=== PATIENT | male | born 1940 | race Caucasian/White ===

== ENCOUNTER 2022-05-20 11:15 | Inpatient (IN) | payer MEDICARE, OTHER, SELFPAY ==
[2022-05-20 11:27] VITALS: BP 133/62; PULSE 57; RESP 18; TEMP 36.6; O2SAT 96
--- NOTE | 2022-05-20 11:47 | CRLHL7_ITS ---
For Patients: As a result of the Century Cures Act, medical imaging exams and procedure reports are released immediately into your electronic medical record. You may view this report before your referring provider. If you have questions, please contact your health care provider. INDICATION: Fall. TECHNIQUE: Pelvis and left hip 3 views. COMPARISON: None. FINDINGS: There is an acute mildly displaced and angulated intertrochanteric fracture of the left femur. The femoral head remains aligned with the acetabulum. The hip joint spaces are preserved. Degenerative changes of the lower lumbar spine. The sacroiliac joints are normal in appearance. Pelvic phleboliths. Soft tissues are unremarkable. IMPRESSION: Acute mildly displaced and angulated intertrochanteric fracture of the left femur. Dictated by Kristie Castrejon MD @ 05/20/2022 1:28:16 PM (Electronically Signed)
--- NOTE | 2022-05-20 11:49 | ED.GENADULT ---
HPI - General Adult General Chief complaint: Hip Injury/Pain Stated complaint: L hip pain Time Seen by Provider: 05/20/22 11:28 History of Present Illness HPI narrative: This 82-year-old male comes in because of an injury to his left hip. He had an unwitnessed fall this morning. He has his left leg shortened and externally rotated. He resides in a assisted living facility with memory care. He has Alzheimer's for the past couple years and is now nonverbal. Prior to this injury he was ambulatory with the assistance of a walker. Related Data Home Medications Medication Instructions Recorded Confirmed bisacodyl 10 mg rectal suppository mg MO 05/20/22 cholestyramine-aspartame 4 gram ea 05/20/22 oral powder (Prevalite) hyoscyamine sulfate 0.125 mg mg 05/20/22 sublingual tablet loperamide 2 mg capsule (Imodium 2 mg PO Q6H PRN 05/20/22 05/20/22 A-D) lorazepam 2 mg/mL oral concentrate mg 05/20/22 morphine concentrate 100 mg/5 mL mg 05/20/22 (20 mg/mL) oral solution quetiapine 25 mg tablet mg 05/20/22 sennosides 8.6 mg-docusate sodium PO 05/20/22 50 mg tablet (Stimulant Laxative Plus) trazodone 50 mg tablet mg 05/20/22 Allergies Allergy/AdvReac Type Severity Reaction Status Date / Time No Known Drug Allergies Allergy Verified 05/20/22 11:23 Review of Systems Status of ROS: Reports: 10 or more systems reviewed and unremarkable except as noted in History and below Narrative: Unable to obtained due to Alzheimer's and nonverbal status. PFSH PFSH Social History Smoking Status: Unknown if ever smoked Do you use any of these nicotine containing products: None Second hand tobacco smoke exposure: No How often do you have a drink containing alcohol: never How often do you have six or more drinks on one occasion: Never AUDIT-C Alcohol total score: 0 Non-prescribed substance use: denies use Exam Narrative: Exam Narrative: Constitutional: Well-developed, well-nourished, no acute distress. HEENT: Normocephalic, atraumatic. Neck: Normal range of motion. Nontender. Supple. Heart: Regular. No murmurs. Normal rate. Intact distal pulses. Lungs: Clear to auscultation. No chest discomfort. No wheezes, rhonchi, or rales. Abdomen: Normal bowel sounds. Nontender. No rebound tenderness. Genitalia: Deferred. Back: No midline tenderness. Normal range of motion. Extremities: Left leg is shortened and externally rotated typical of a hip fracture. Skin: Intact. No rash. Warm. No erythema or pallor. Neurologic: No altered sensation. No weakness. Psychiatric: Alzheimer's dementia. Nonverbal. Nursing notes and vitals signs are reviewed. Const: Vital Signs, click to edit/add: Vital Signs - 24 hr 05/20/22 11:27 Temperature 97.9 F Pulse Rate [Right Pulse Oximeter] 57 L Respiratory Rate 18 Blood Pressure [Ri ght Upper Arm] 133/62 Pulse Oximetry 96 Oxygen Delivery Me thod Room Air Course Vital Signs Vital signs: Initial Vital Signs Temperature 97.9 F 05/20/22 11:27 Temperature Source Temporal Artery Scan 05/20/22 11:27 Pulse Rate 57 L 05/20/22 11:27 Respiratory Rate 18 05/20/22 11:27 Blood Pressure 133/62 05/20/22 11:27 Blood Pressure Mean 85 05/20/22 11:27 Blood Pressure Position Sitting 05/20/22 11:27 Pulse Oximetry 96 05/20/22 11:27 Oxygen Delivery Method 05/20/22 11:27 Vital Signs Temperature 97.9 F 05/20/22 11:27 Pulse Rate 57 L 05/20/22 11:27 Respiratory Rate 18 05/20/22 11:27 Blood Pressure 133/62 05/20/22 11:27 Pulse Oximetry 96 05/20/22 11:27 Oxygen Delivery Method 05/20/22 11:27 Temperature 97.9 F 05/20/22 11:27 Pulse Rate 57 L 05/20/22 11:27 Respiratory Rate 18 05/20/22 11:27 Blood Pressure 133/62 05/20/22 11:27 Pulse Oximetry 96 05/20/22 11:27 Oxygen Delivery Method 05/20/22 11:27 Medical Decision Making MDM Narrative Medical decision making narrative: This patient comes in for evaluation of a fall with injury to his left hip. X-ray images of the hip and pelvis by my review show evidence of a left greater trochanteric hip fracture. An IV was established. He did receive 0.2 mg of Dilaudid intravenously. I had discussion with the patient's and daughter who had lots of questions about options going forward. The patient is DNR DNI. He is not on blood thinners. He does have a systolic ejection murmur that is apparently due to some degree of aortic stenosis. I did speak with the orthopedic surgeon on-call, Dr. Ashraf, and with the hospitalist inspector heating and refrigeration, Dr. Rubi, who will arrange for admission and plans for attending to the fractured hip. Lab Data Labs: Lab Results 05/20/22 05/20/22 Range/Units 12:09 12:09 WBC 9.22 (4.50-11.00) K/uL RBC 4.76 (4.30-5.90) m/uL Hgb 13.0 L (13.5-17.5) gm/dL Hct 41.8 (37.0-53.0) % MCV 88 (80-100) fL MCH 27 (26-34) pg MCHC 31 L (32-36) gm/dL RDW Coeff of Arlette 14.6 (11.5-15.5) % Plt Count 180 (140-440) K/uL Neut % (Auto) 85.9 H (42.0-72.0) % Lymph % (Auto) 7.7 L (20-44) % [place] % (Auto) 5.6 (0.0-11.0) % Eos % (Auto) 0.5 (0.0-7.0) % Baso % (Auto) 0.1 (0.0-3.0) % Neut # (Auto) 7.90 H (1.7-7.0) K/uL Lymph # (Auto) 0.70 L (0.90-2.90) K/uL [place] # (Auto) 0.50 (0.00-0.90) K/UL Eos # (Auto) 0.05 (0.00-0.50) K/uL Baso # (Auto) 0.01 (0.00-0.30) K/uL Abs Immat Gran (auto) 0.02 (0.00-0.30) K/uL Sodium 143 (135-149) mmol/L Potassium 3.7 (3.6-5.1) mmol/L Chloride 109 (96-114) mmol/L Carbon Dioxide 24 (20-32) mmol/L BUN 26 (7-30) mg/dL Creatinine 1.0 (0.5-1.5) mg/dL Estimated GFR 76 ml/min Glucose 143 H (60-115) mg/dL Calcium 9.2 (8.4-10.6) mg/dL Imaging Data XR L Hip: My impression: Left greater trochanteric hip fracture. Discharge Plan Discharge Clinical Impression: Hip fracture Patient Disposition: Admitted As Inpatient Condition: Unchanged Prescriptions: No Action bisacodyl 10 mg suppository MO Label Comments: INSERT 1 SUPPOSITORY RECTALLY ONCE DAILY NEEDED FOR CONSTIPATION hyoscyamine sulfate 0.125 mg tablet, sublingual Label Comments: DISSOLVE 1 TABLET UNDER THE TONGUE EVERY 4 HOURS NEEDED FOR SECRETIONS Prevalite 4 gram powder loperamide [Imodium A-D] 2 mg capsule 2 mg PO Q6H PRN quetiapine 25 mg tablet trazodone 50 mg tablet morphine concentrate 100 mg/5 mL (20 mg/mL) solution sennosides-docusate sodium [Stimulant Laxative Plus] 8.6-50 mg tablet PO Label Comments: TAKE 1 TABLET BY MOUTH DAILY NEEDED FOR CONSTIPATION lorazepam 2 mg/mL concentrate Follow Up/Referrals: Maribel Lr MD [Staff Physician] -
--- NOTE | 2022-05-20 11:51 | CRLHL7_ITS ---
For Patients: As a result of the Cures Act, medical imaging exams and procedure reports are released immediately into your electronic medical record. You may view this report before your referring provider. If you have questions, please contact your health care provider. INDICATION: Fall. TECHNIQUE: Chest 1 view. COMPARISON: None. FINDINGS: No focal consolidation, pleural effusion, or pneumothorax. Mild cardiomegaly. Normal pulmonary vascularity. Degenerative changes of the shoulders. No displaced rib fracture identified. IMPRESSION: 1. No acute cardiopulmonary findings. 2. Mild cardiomegaly. Dictated by Kristie Castrejon MD @ 05/20/2022 1:30:44 PM (Electronically Signed)
[2022-05-20 12:15] LABS: Basophils Absolute Auto 0.01 K/uL (0.00-0.30); Basophils Percent Auto 0.1 % (0.0-3.0); Eosinophils Absolute Auto 0.05 K/uL (0.00-0.50); Eosinophils Percent Auto 0.5 % (0.0-7.0); Hematocrit 41.8 % (37.0-53.0); Immature Granulocytes Abs Auto 0.02 K/uL (0.00-0.30); Lymphocytes Percent Auto 7.7 % (20-44); Mean Corpuscular HGB Conc 31 gm/dL (32-36); Mean Corpuscular Hemoglobin 27 pg (26-34); Mean Corpuscular Volume 88 fL (80-100); Monocytes Percent Auto 5.6 % (0.0-11.0); Neutrophils Percent Auto 85.9 % (42.0-72.0); Platelet Count* 180 K/uL (140-440); RDW Coefficient of Variation % 14.6 % (11.5-15.5); Red Blood Count 4.76 m/uL (4.30-5.90); White Blood Count* 9.22 K/uL (4.50-11.00)
[2022-05-20 12:20] LABS: Slide Review Reflex No
[2022-05-20 12:28] LABS: Chloride* 109 mmol/L (96-114)
[2022-05-20 12:29] LABS: Potassium* 3.7 mmol/L (3.6-5.1); Sodium* 143 mmol/L (135-149)
[2022-05-20 12:31] LABS: Carbon Dioxide* 24 mmol/L (20-32); Estimated Glomerular Filt Rate 76 ml/min
[2022-05-20 12:32] LABS: Blood Urea Nitrogen* 26 mg/dL (7-30); Calcium* 9.2 mg/dL (8.4-10.6); Glucose* 143 mg/dL (60-115)
[2022-05-20] MEDS: HYDROmorphone 0.5 mg/0.5 ml inj 0.2 MG IVP (13:23)
--- NOTE | 2022-05-20 13:35 | ED.NURSE ---
Bed request sent
[2022-05-20 13:36] VITALS: BP 122/78; PULSE 82; O2SAT 98
[2022-05-20 14:03] LABS: SARS PCR* Negative SARS-CoV-2 (Negative)
--- NOTE | 2022-05-20 14:13 | W.PC.EDHO ---
Primary Language: Preferred Language: Orientation Status: [] Alert & Oriented [] Slight Confusion [] Known Dx Dementia Transfers By: [] Assist of 1 [] Assist of 2 [X] Lift Active Medications Discontinued Medications Generic Name Dose Route Start Last Admin Trade Name Ann-Marie PRN Reason Stop Dose Admin Hydromorphone HCl 0.2 mg 05/20/22 13:08 05/20/22 13:23 Hydromorphone 0.5 Mg/0.5 Ml Inj IVP 05/20/22 13:09 0.2 mg ONCE ONE Administration Description of Symptoms ED Triage Present Problem pt fell last evening at his NH, today they were Description attempting to get him up and noted his left leg was shortened and rotated, pt non-verbal but do note grimacing with movement ED Triage Date of Onset of 05/19/22 Symptoms Pain Pain Description [Left Hip] Other Pain Intensity [Left Hip] 4 Pain Intensity [Left Hip] 4 Pain Intensity 6 Pain Scale Used [Left Hip] Hinojosa-Olivares (Faces) Pain Scale Used [Left Hip] FLACC Scale Pain Scale Used Hinojosa-Olivares (Faces) Pain Scale Used Hinojosa-Olivares (Faces) Pain Scale Used Hinojosa-Olivares (Faces) IV Insertion/Site Date of IV Line Insertion [ 05/20/22 Right Antecubital] Oxygen Administration Pulse Oximetry 98 Pulse Oximetry 96 Oxygen Delivery Method Room Air Oxygen Delivery Method Room Air Cardiac Monitoring EKG Method 12 Lead
--- NOTE | 2022-05-20 14:30 | ED.NURSE ---
Requested medication for patient, no new orders.
[2022-05-20] MEDS: MORPHINE 2 MG/ML inj IVP ×2 (15:54→18:37)
[2022-05-20 17:57] VITALS: BP 177/92; PULSE 72; RESP 16; O2SAT 95; BMI 21.9
[2022-05-20 19:17] VITALS: BP 163/90; PULSE 86; RESP 22; TEMP 37.7; O2SAT 96
[2022-05-20 19:45] LABS: NT Pro B Type NatriureticPept* 2150 PG/mL (0-450)
[2022-05-20] MEDS: LACTATED RINGERS 1000 ML 500 ML IV (19:53)
[2022-05-20] MEDS: CHOLESTYRAMINE POWDER 4 GM PO (20:09)
--- NOTE | 2022-05-20 20:14 | PM.IMHP1 ---
Hospitalist- H&P: HPI History of Present Illness Time Seen by Provider: 15:00 Date Seen: 05/20/22 Chief complaint: L hip pain Narrative: Cuco Rueda is a 82 year old man with advanced Alzheimer's type of dementia who resides in an assisted care facility called [facility] in [place], [place], and has been receiving hospice services with [facility] in association with this Alzheimer's diagnosis for approximately the past month. He has significant cognitive and physical debility in association with Alzheimer's disease, including decreased cognition, aphasia, impulsivity, unstable gait, multiple falls. Reportedly he now requires assistance with all 6 of 6 activities of daily living. This morning he was sitting at the dining room table when staff left him unattended for a brief moment and he impulsively attempted to stand and fell to the floor and subsequently had left hip pain. The fall was not witnessed. There was no loss of consciousness. No obvious head injury. Was brought to the emergency department for further assessment. Found to have a shortened left leg that is externally rotated. X-ray of left hip demonstrated a nondisplaced left intertrochanteric hip fracture. Discussion undertaken with the patient and daughter, Mar. Reviewed treatment options including palliative management of pain only verses attempt at intraoperative repair. Family elected attempt at intraoperative repair of the fracture. Review of Systems Status of ROS: Reports: 10 or more systems reviewed and unremarkable except as noted in History and below Narrative: No obvious or apparent angina or anginal equivalent, syncope or near syncope, nausea or vomiting, dyspnea at rest, paroxysmal nocturnal dyspnea, orthopnea, or increased dyspnea with exertion. No obvious recent fevers, rigors, diaphoresis. No recent blood loss. No recent travel. In the last several months he has been assessed in the emergency department at least 5 times related to falls and injuries associated there with. Most of the falls have been either without injury or with laceration, contusion, or skin abrasion. Reviewed outside medical records on 02/03/2022 he had a fall that culminated in a 10 mm subdural hematoma. After another fall on 12 February the subdural hematoma was found to be [address] scan of the head on 13 February demonstrated stable size of the subdural hematoma at 14 mm. Has not been reassessed in this regard since. No obvious gastrointestinal or genitourinary concerns or problems. Family does indicate that he has had a fair amount of weight loss over the last several months. Is on a modified diet with small bites size pieces of food, soft and easy to chew, with nectar thick into applesauce thickened liquids due to his dysphagia. Requires constant supervision when eating including cuing to swallow and not fill his mouth full of food. Generally redirectable. For the most part recognizes family members still. Has not been able to speak for some time. Family describes him as being fidgety. Has had longstanding insomnia. Has been living at the current assisted Living Center, Family residence, for at least a month and the family has been very satisfied with the cares he has received there. His , Mercedes, and his daughter, Mar, are very active in his cares and needs. Mercedes's cell telephone number is [phone]. Mar's cell phone number is [phone]. Family indicate that patient has resuscitation status is DNR DNI. [facility] Medical History (Updated 05/20/22 @ 20:59 by John Lundberg MD) Alzheimer's type dementia Aortic stenosis Diverticulosis Dysphagia Essential hypertension Fracture of thoracic vertebra, closed Gallstone History of laceration of skin History of prostate cancer History of sinus bradycardia History of traumatic subdural hematoma Hyperlipidemia Impulsive Insomnia disorder Left ureteral calculus Multiple falls Multiple rib fractures Obstructive sleep apnea Osteoarthritis Simple renal cyst Unstable gait Surgical History History of umbilical hernia repair Status post laparoscopic hernia repair Status post left knee replacement Status post prostatectomy Status post right rotator cuff repair Social History Highest level of school completed/degree received: Bachelor's degree Smoking Status: Former smoker What tobacco products do you use: cigarettes Smoking quit date/years: >15 years ago Do you use any of these nicotine containing products: None Second hand tobacco smoke exposure: No How often do you have a drink containing alcohol: never How often do you have six or more drinks on one occasion: Never AUDIT-C Alcohol total score: 0 Non-prescribed substance use: denies use Caffeine: No service: No Meds Home Medications and Allergies Home Medications Medication Instructions Recorded Confirmed Type acetaminophen 650 mg rectal 650 mg SD Q6H PRN 05/20/22 05/20/22 History suppository bisacodyl 10 mg rectal suppository 10 mg SD DAILY PRN 05/20/22 05/20/22 History cholestyramine-aspartame 4 gram 4 ea PO TID 05/20/22 05/20/22 History oral powder (Prevalite) hyoscyamine sulfate 0.125 mg 0.125 mg PO Q4H PRN 05/20/22 05/20/22 History sublingual tablet loperamide 2 mg capsule (Imodium 2 mg PO Q6H PRN 05/20/22 05/20/22 History A-D) lorazepam 0.5 mg tablet (Ativan) 0.5 mg PO Q4H PRN 05/20/22 05/20/22 History melatonin 3 mg tablet 6 mg PO QHS 05/20/22 05/20/22 History morphine concentrate 100 mg/5 mL 5 mg PO Q2H PRN 05/20/22 05/20/22 History (20 mg/mL) oral solution quetiapine 25 mg tablet 25 mg PO DAILY PRN 05/20/22 05/20/22 History quetiapine 50 mg tablet (Seroquel) 50 mg PO QHS 05/20/22 05/20/22 History sennosides 8.6 mg-docusate sodium 1 tab-cap PO DAILY PRN 05/20/22 05/20/22 History 50 mg tablet (Stimulant Laxative Plus) trazodone 50 mg tablet 50 mg PO HS 05/20/22 05/20/22 History Allergies Allergy/AdvReac Type Severity Reaction Status Date / Time No Known Drug Allergies Allergy Verified 05/20/22 11:23 Exam Narrative: Exam Narrative: Appears comfortable. Holding his daughter's hand. Does fidget a fair amount. A couple of times during my examination with him he attempts to get up and get out of the emergency department exam chair. His daughter is able to comfort him and help him lay back down on the exam table. Unable to answer any questions that I prefer to him. His daughter, Mar, who is present when I examine him, helps answer my questions. I also speak with his in the emergency department waiting room, who is not present when I examined the patient. Cranial nerves 3-12 appear grossly intact. No focal motor neurologic deficits. Certainly has expressive aphasia. Does follow simple 1 step commands. Skin is intact. Does have scars on his forehead. No obvious ecchymosis or contusions on exposed skin. Neck supple. No JVD or hepatojugular reflux. No carotid bruits. Lungs are clear to auscultation without wheezing, rhonchi, or rales. Chest wall excursions are full. Chest is thin. Ribs easily visible. Heart tones with regular rhythm, occasional extra beat. Loud, harsh systolic murmur across the precordium loudest in right upper sternal border. PMI not laterally displaced. Abdomen with active bowel sounds, soft, nontender. Thin abdomen. Left lower extremity is shorter than the right and is externally rotated. No dependent edema. Still has a great deal of strength in upper extremities. Const: Vital Signs, click to edit/add: Vital Signs - 24 hr 05/20/22 11:27 05/20/22 13:36 05/20/22 17:57 Temperature 97.9 F Pulse Rate [Right Pulse Oximeter] 57 L 82 72 Respiratory Rate 18 16 Blood Pressure [Ri ght Arm] 177/92 H Blood Pressure [Ri ght Upper Arm] 133/62 122/78 Pulse Oximetry 96 98 95 Oxygen Delivery Me thod Room Air Room Air Room Air 05/20/22 17:57 Temperature Pulse Rate [Right Pulse Oximeter] Respiratory Rate Blood Pressure [Ri ght Arm] Blood Pressure [Ri ght Upper Arm] Pulse Oximetry 95 Oxygen Delivery Me thod Room Air Hospitalist - H&P: Result Labs Labs: Short CBC 05/20/22 Range/Units 12:09 WBC 9.22 (4.50-11.00) K/uL Hgb 13.0 L (13.5-17.5) gm/dL Hct 41.8 (37.0-53.0) % Plt Count 180 (140-440) K/uL BMP 05/20/22 12:09 Sodium 143 Potassium 3.7 Chloride 109 Carbon Dioxide 24 BUN 26 Creatinine 1.0 Glucose 143 H Calcium 9.2 Imaging Chest x-ray: Attestation: I have reviewed the pertinent imaging results. Radiologist's impression: Possible mild cardiomegaly otherwise lungs are clear. Left hip x-ray: Attestation: I have reviewed the pertinent imaging results. Radiologist's impression: Nondisplaced left intertrochanteric fracture. Echo: Radiologist's impression: Normal left ventricular chamber size, mildly increased wall thickness, normal global systolic function, calculated ejection fraction of 64%. Sclerotic aortic valve, with severe aortic stenosis and mild regurgitation. Mean gradient is up to 72 mmHg, with last echocardiogram in January of 2020 demonstrating a mean gradient of 41 mmHg. Moderate left atrial enlargement. Normal mitral valve with mild mitral regurgitation. Assessment and Plan Assessment and plan (1) Closed intertrochanteric fracture of left hip: Status: Acute (2) Unstable gait: Status: Acute (3) Multiple falls: Status: Acute (4) Impulsive: Status: Acute (5) Alzheimer's type dementia: Problem comment: Receiving hospice services in association with the same Status: Acute (6) Severe aortic valve stenosis: Problem comment: Mean gradient 72 mmHg 05/20/2022. Mean gradient was 41 mmHg 01/2020. Family declines any additional disease directed diagnostic or interventional efforts at this time. Status: Acute Plan 1. Reviewed impression with patient's and daughter, Mar. Answered their questions. 2. Patient's and daughter indicate that to the best of their ability they believe that the patient would prefer to proceed with surgical repair of this intertrochanteric fracture at this time. 3. Will need our anesthesiologist to weigh in on the possibility of undertaking this procedure here in our hospital given current status of his evolving severe aortic stenosis. The hope is that he might be a candidate for spinal anesthesia. 4. Patient's family continued to express desire for comfort focus measures beyond this surgical repair. They decline any additional disease directed diagnostic or interventional efforts regarding other conditions including the aortic stenosis. 5. Will ask for Physical therapy, Occupational therapy, speech therapy, dietary, and medical social worker consultations. 6. Continue with supportive medications as much as possible. 7. Will keep patient NPO overnight. Orthopedic surgery aware and will consult on the patient in the morning. 8. Rather than have IV fluids running continuously, giving his dementia and increased risk of complications if we keep the IV fluids running, I will give him small boluses of lactated Ringer's IV intermittently for now. 9. Opioid analgesics as needed for pain management. 10. At time of discharge will need to coordinate with his hospice service provider and the assisted living where he resides.
--- NOTE | 2022-05-20 20:20 | PC.NURSE ---
shift [phone] pt this shift arrived from ED with L hip fracture. Late stage Alzheimer, pt non verbal and unable to make needs known. Facial grimace with movement, treated with Morphine see eMAR. and daughter at bedside, hand sign writer answered questions and concerns sufficiently. Dysphagia diet, minced food and applesauce think liquids. KEZIA assisting with meals at bedside. 1:1 ordered for pt d/t attempting to get out of bed while in ED and per family report of frequent falls over the past year. Pt tolerating a fidget item, manipulating it since arrival. Pt not trying to get up and out of bed, appears relaxed and comfortable. Left leg turned outward, about an inch shorter than R. Ice pack applied. Surgery pending for tomorrow.
[2022-05-20 22:09] VITALS: PULSE 86; RESP 22
[2022-05-20] MEDS: TRAZODONE HCL 50 MG TABLET PO (22:41)
[2022-05-20] MEDS: GABAPENTIN 100 MG CAPSULE PO (22:41)
[2022-05-20] MEDS: QUETIAPINE 25 MG TABLET 50 MG PO (22:41)
[2022-05-20] MEDS: MELATONIN 3 MG TABLET 6 MG PO (22:42)
[2022-05-20 23:00] VITALS: BP 159/92; PULSE 90; RESP 24; TEMP 37.6; O2SAT 96
[2022-05-21] VITALS (27 sets, daily range): BP systolic 91–154; BP diastolic 54–99; PULSE 65–90; RESP 14–26; TEMP 36.8–38.2; O2SAT 91–100; BMI 21.9
[2022-05-21] MEDS: LACTATED RINGERS 1000 ML 500 ML IV ×2 (06:03→11:17)
--- NOTE | 2022-05-21 06:11 | PC.NURSE ---
19-07: pt nonverbal with Alzheimer's. Pt smiles very frequently. Compliant with cares. Pt seems to be comfortable, is very entertained with the toys that are at bedside. 2x incontinent episodes.
[2022-05-21 06:44] LABS: HCO3 VBG 23 mmol/L (21-28); PCO2 VBG 35 mmHG (40-50); pH VBG 7.437 (7.32-7.43)
[2022-05-21 06:57] LABS: Hematocrit 35.4 % (37.0-53.0); Hemoglobin* 11.4 gm/dL (13.5-17.5); Mean Corpuscular HGB Conc 32 gm/dL (32-36); Mean Corpuscular Hemoglobin 28 pg (26-34); Mean Corpuscular Volume 86 fL (80-100); Platelet Count* 170 K/uL (140-440); Red Blood Count 4.11 m/uL (4.30-5.90); White Blood Count* 8.24 K/uL (4.50-11.00)
[2022-05-21 07:09] LABS: Slide Review Reflex No
[2022-05-21 07:19] LABS: Chloride* 109 mmol/L (96-114); Potassium* 3.9 mmol/L (3.6-5.1); Sodium* 137 mmol/L (135-149)
[2022-05-21 07:22] LABS: Carbon Dioxide* 22 mmol/L (20-32); Creatinine* 0.8 mg/dL (0.5-1.5); Est. Creatinine Clearance* 52.06; Estimated Glomerular Filt Rate 89 ml/min
[2022-05-21 07:23] LABS: Blood Urea Nitrogen* 23 mg/dL (7-30); Calcium* 8.9 mg/dL (8.4-10.6); Glucose* 109 mg/dL (60-115)
[2022-05-21 07:25] LABS: C Reactive Protein* 3.8 mg/dL (0.5-1.0); NT Pro B Type NatriureticPept* 4900 PG/mL (0-450)
--- NOTE | 2022-05-21 08:08 | PM.IMPN1 ---
Progress Note: A&P Assessment and plan (1) Hip fracture: Problem details: Doing well this morning and optimized for surgery. Due to severe aortic stenosis is at risk for complications related to fluid shifts and volume loss and volume resuscitation. Status: Acute (2) Severe aortic valve stenosis: Problem details: Mean gradient 72 mmHg 05/20/2022. Mean gradient was 41 mmHg 01/2020. Family declines any additional disease directed diagnostic or interventional efforts at this time. Status: Acute (3) Alzheimer's type dementia: Problem details: Receiving hospice services in association with the same Status: Acute Plan Proceed to surgery today. Anticipate careful monitoring of cardiovascular status postop. May also have agitated delirium postop Time Spent With Patient Total time spent: 25 min, 15 min in coordination of care and discussing surgery with other poviders Subjective Date Seen: 05/21/22 Interval history: 82-year-old male with severe dementia and severe aortic stenosis is seen in followup of fall with hip fracture. He had a quiet night overnight. He received 2 500 mL boluses of fluid. He has not had any significant agitation. Vital signs have been normal. He is nonverbal. Exam Narrative: Exam Narrative: He is lying in bed and awake. He does not respond or follow simple commands. He does follow me visually with his eyes only. Respirations are unlabored. Breath sounds are clear. Cardiovascular: S1, S2, 2/6 harsh systolic ejection murmur. Heart rhythm is relatively irregular. No gallop or rub. Abdomen is soft without tenderness or mass. Some deformity of the left hip is noted. Left leg is externally rotated and shortened. He has intact pedal pulses bilaterally. No edema. Const: Vital Signs, click to edit/add: Vital Signs - 24 hr 05/20/22 11:27 05/20/22 13:36 05/20/22 17:57 Temperature 97.9 F Pulse Rate [Right Pulse Oximeter] 57 L 82 72 Respiratory Rate 18 16 Blood Pressure [Ri ght Arm] 177/92 H Blood Pressure [Ri ght Upper Arm] 133/62 122/78 Pulse Oximetry 96 98 95 Oxygen Delivery Me thod Room Air Room Air Room Air 05/20/22 17:57 05/20/22 19:17 05/20/22 22:09 Temperature 99.8 F H Pulse Rate [Right Pulse Oximeter] 86 86 Respiratory Rate 22 22 Blood Pressure [Ri ght Arm] 163/90 H Blood Pressure [Ri ght Upper Arm] Pulse Oximetry 95 96 Oxygen Delivery Me thod Room Air Room Air 05/20/22 23:00 05/21/22 02:50 Temperature 99.7 F H Pulse Rate [Right Pulse Oximeter] 90 80 Respiratory Rate 24 26 H Blood Pressure [Ri ght Arm] 159/92 H 111/61 Blood Pressure [Ri ght Upper Arm] Pulse Oximetry 96 96 Oxygen Delivery Me thod Room Air Room Air Documenting provider has reviewed patient's vital signs: yes Labs Labs: Laboratory Results - last 24 hr 05/20/22 05/20/22 05/20/22 12:09 12:09 13:18 WBC 9.22 RBC 4.76 Hgb 13.0 L Hct 41.8 MCV 88 MCH 27 MCHC 31 L RDW Coeff of Arlette 14.6 Plt Count 180 Neut % (Auto) 85.9 H Lymph % (Auto) 7.7 L [place] % (Auto) 5.6 Eos % (Auto) 0.5 Baso % (Auto) 0.1 Neut # (Auto) 7.90 H Lymph # (Auto) 0.70 L [place] # (Auto) 0.50 Eos # (Auto) 0.05 Baso # (Auto) 0.01 Abs Immat Gran (auto) 0.02 VBG pH VBG pCO2 VBG pO2 VBG HCO3 Sodium 143 Potassium 3.7 Chloride 109 Carbon Dioxide 24 BUN 26 Creatinine 1.0 Estimated Creat Clear Estimated GFR 76 Glucose 143 H Lactate Calcium 9.2 C-Reactive Protein NT-Pro-B Natriuret Pep 2150 H TSH SARS-CoV-2 (PCR) Negative SARS-CoV-2 05/21/22 05/21/22 05/21/22 05:59 05:59 05:59 WBC 8.24 RBC 4.11 L Hgb 11.4 L Hct 35.4 L MCV 86 MCH 28 MCHC 32 RDW Coeff of Arlette Plt Count 170 Neut % (Auto) Lymph % (Auto) [place] % (Auto) Eos % (Auto) Baso % (Auto) Neut # (Auto) Lymph # (Auto) [place] # (Auto) Eos # (Auto) Baso # (Auto) Abs Immat Gran (auto) VBG pH 7.437 H VBG pCO2 35 L VBG pO2 49.0 H VBG HCO3 23 Sodium 137 Potassium 3.9 Chloride 109 Carbon Dioxide 22 BUN 23 Creatinine 0.8 Estimated Creat Clear 52.06 Estimated GFR 89 Glucose 109 Lactate 1.0 Calcium 8.9 C-Reactive Protein 3.8 H NT-Pro-B Natriuret Pep 4900 H TSH SARS-CoV-2 (PCR) 05/21/22 05:59 WBC RBC Hgb Hct MCV MCH MCHC RDW Coeff of Arlette Plt Count Neut % (Auto) Lymph % (Auto) [place] % (Auto) Eos % (Auto) Baso % (Auto) Neut # (Auto) Lymph # (Auto) [place] # (Auto) Eos # (Auto) Baso # (Auto) Abs Immat Gran (auto) VBG pH VBG pCO2 VBG pO2 VBG HCO3 Sodium Potassium Chloride Carbon Dioxide BUN Creatinine Estimated Creat Clear Estimated GFR Glucose Lactate Calcium C-Reactive Protein NT-Pro-B Natriuret Pep TSH 1.400 SARS-CoV-2 (PCR)
[2022-05-21] MEDS: MORPHINE 2 MG/ML inj IVP (08:21)
[2022-05-21] MEDS: LACTATED RINGERS 1000 ML 1,000 ML 125 ML IV (11:18)
--- NOTE | 2022-05-21 12:14 | PC.SOCIAL ---
Spoke with Mayra, the director at [facility] where pt. resides. They can accommodate shruthi lifts at their facility and are planning to accept pt. back when ready for discharge. coordinator of library services will continue to work on discharge planning needs.
--- NOTE | 2022-05-21 13:06 | CRLHL7_ITS ---
For Patients: As a result of the Cures Act, medical imaging exams and procedure reports are released immediately into your electronic medical record. You may view this report before your referring provider. If you have questions, please contact your health care provider. Indication: Fracture fixation Technique: AP and lateral fluoroscopic images of the left femur. Fluoroscopic time 88.1 seconds. IMPRESSION: Fluoroscopic guidance for open reduction internal fixation of left femoral fracture. Dictated by René Penaloza MD @ 05/21/2022 3:39:17 PM (Electronically Signed)
--- NOTE | 2022-05-21 13:55 | PM.ORCN ---
History of Present Illness HPI Date Seen: 05/21/22 Chief complaint: L hip pain Narrative: Dr. Lundberg has requested orthopedic consultation for left hip fracture. Patient is an 82-year-old community ambulator with a walker. He lives in an assisted living situation secondary to Alzheimer's dementia. He had an unwitnessed fall sustaining a left lower extremity intertrochanteric fracture. He has never injured this hip or had surgery on it previously. Review of Systems Narrative: The patient is nonverbal. [facility] Medical History (Updated 05/21/22 @ 08:23 by Santosh Davison MD) Alzheimer's type dementia Aortic stenosis Diverticulosis Dysphagia Essential hypertension Fracture of thoracic vertebra, closed Gallstone History of laceration of skin History of prostate cancer History of sinus bradycardia History of traumatic subdural hematoma Hyperlipidemia Impulsive Insomnia disorder Left ureteral calculus Multiple falls Multiple rib fractures Obstructive sleep apnea Osteoarthritis Simple renal cyst Unstable gait Surgical History History of umbilical hernia repair Status post laparoscopic hernia repair Status post left knee replacement Status post prostatectomy Status post right rotator cuff repair Social History Highest level of school completed/degree received: Bachelor's degree Smoking Status: Former smoker What tobacco products do you use: cigarettes Smoking quit date/years: >15 years ago Do you use any of these nicotine containing products: None Second hand tobacco smoke exposure: No How often do you have a drink containing alcohol: never How often do you have six or more drinks on one occasion: Never AUDIT-C Alcohol total score: 0 Non-prescribed substance use: denies use Caffeine: No service: No Meds Home Medications and Allergies Home Medications Medication Instructions Recorded Confirmed Type acetaminophen 650 mg rectal 650 mg NE Q6H PRN 05/20/22 05/20/22 History suppository bisacodyl 10 mg rectal suppository 10 mg NE DAILY PRN 05/20/22 05/20/22 History cholestyramine-aspartame 4 gram 4 ea PO TID 05/20/22 05/20/22 History oral powder (Prevalite) hyoscyamine sulfate 0.125 mg 0.125 mg PO Q4H PRN 05/20/22 05/20/22 History sublingual tablet loperamide 2 mg capsule (Imodium 2 mg PO Q6H PRN 05/20/22 05/20/22 History A-D) lorazepam 0.5 mg tablet (Ativan) 0.5 mg PO Q4H PRN 05/20/22 05/20/22 History melatonin 3 mg tablet 6 mg PO QHS 05/20/22 05/20/22 History morphine concentrate 100 mg/5 mL 5 mg PO Q2H PRN 05/20/22 05/20/22 History (20 mg/mL) oral solution quetiapine 25 mg tablet 25 mg PO DAILY PRN 05/20/22 05/20/22 History quetiapine 50 mg tablet (Seroquel) 50 mg PO QHS 05/20/22 05/20/22 History sennosides 8.6 mg-docusate sodium 1 tab-cap PO DAILY PRN 05/20/22 05/20/22 History 50 mg tablet (Stimulant Laxative Plus) trazodone 50 mg tablet 50 mg PO HS 05/20/22 05/20/22 History Allergies Allergy/AdvReac Type Severity Reaction Status Date / Time No Known Drug Allergies Allergy Verified 05/20/22 11:23 Ortho Exam Narrative Exam Narrative: The patient is examined supine in the hospital bed. The skin about the left hip is intact and normal no surgical scars. CMS is unable to be assessed as the patient does not follow commands. There are surgical scars about the anterior aspect of the knee consistent with total knee arthroplasty. Const Vital Signs, click to edit/add: Vital Signs - 24 hr 05/20/22 17:57 05/20/22 17:57 05/20/22 19:17 Temperature 99.8 F H Pulse Rate [Left Radial] Pulse Rate [Right Pulse Oximeter] 72 86 Respiratory Rate 16 22 Blood Pressure [Right Arm] 177/92 H 163/90 H Pulse Oximetry 95 95 96 Oxygen Delivery Method Room Air Room Air Room Air 05/20/22 22:09 05/20/22 23:00 05/21/22 02:50 Temperature 99.7 F H Pulse Rate [Left Radial] Pulse Rate [Right Pulse Oximeter] 86 90 80 Respiratory Rate 22 24 26 H Blood Pressure [Right Arm] 159/92 H 111/61 Pulse Oximetry 96 96 Oxygen Delivery Method Room Air Room Air 05/21/22 07:00 05/21/22 07:00 05/21/22 11:00 Temperature 100.4 F H 100.7 F H Pulse Rate [Left Radial] 87 83 Pulse Rate [Right Pulse Oximeter] 87 Respiratory Rate 24 24 22 Blood Pressure [Right Arm] 102/77 104/66 Pulse Oximetry 95 97 Oxygen Delivery Method Room Air Room Air Results Labs Labs: Laboratory Results - last 48 hr 05/20/22 05/20/22 05/20/22 12:09 12:09 13:18 WBC 9.22 RBC 4.76 Hgb 13.0 L Hct 41.8 MCV 88 MCH 27 MCHC 31 L RDW Coeff of Arlette 14.6 Plt Count 180 Neut % (Auto) 85.9 H Lymph % (Auto) 7.7 L [place] % (Auto) 5.6 Eos % (Auto) 0.5 Baso % (Auto) 0.1 Neut # (Auto) 7.90 H Lymph # (Auto) 0.70 L [place] # (Auto) 0.50 Eos # (Auto) 0.05 Baso # (Auto) 0.01 Abs Immat Gran (auto) 0.02 VBG pH VBG pCO2 VBG pO2 VBG HCO3 Sodium 143 Potassium 3.7 Chloride 109 Carbon Dioxide 24 BUN 26 Creatinine 1.0 Estimated Creat Clear Estimated GFR 76 Glucose 143 H Lactate Calcium 9.2 C-Reactive Protein NT-Pro-B Natriuret Pep 2150 H TSH SARS-CoV-2 (PCR) Negative SARS-CoV-2 Blood Type Antibody Screen 05/21/22 05/21/22 05/21/22 05:59 05:59 05:59 WBC 8.24 RBC 4.11 L Hgb 11.4 L Hct 35.4 L MCV 86 MCH 28 MCHC 32 RDW Coeff of Arlette Plt Count 170 Neut % (Auto) Lymph % (Auto) [place] % (Auto) Eos % (Auto) Baso % (Auto) Neut # (Auto) Lymph # (Auto) [place] # (Auto) Eos # (Auto) Baso # (Auto) Abs Immat Gran (auto) VBG pH 7.437 H VBG pCO2 35 L VBG pO2 49.0 H VBG HCO3 23 Sodium 137 Potassium 3.9 Chloride 109 Carbon Dioxide 22 BUN 23 Creatinine 0.8 Estimated Creat Clear 52.06 Estimated GFR 89 Glucose 109 Lactate 1.0 Calcium 8.9 C-Reactive Protein 3.8 H NT-Pro-B Natriuret Pep 4900 H TSH SARS-CoV-2 (PCR) Blood Type Antibody Screen 05/21/22 05/21/22 05:59 05:59 WBC RBC Hgb Hct MCV MCH MCHC RDW Coeff of Arlette Plt Count Neut % (Auto) Lymph % (Auto) [place] % (Auto) Eos % (Auto) Baso % (Auto) Neut # (Auto) Lymph # (Auto) [place] # (Auto) Eos # (Auto) Baso # (Auto) Abs Immat Gran (auto) VBG pH VBG pCO2 VBG pO2 VBG HCO3 Sodium Potassium Chloride Carbon Dioxide BUN Creatinine Estimated Creat Clear Estimated GFR Glucose Lactate Calcium C-Reactive Protein NT-Pro-B Natriuret Pep TSH 1.400 SARS-CoV-2 (PCR) Blood Type O Positive Antibody Screen NEGATIVE Diagnostic results Additional Comments: An AP pelvis, AP and cross-table lateral view the left hip show a 3 part intertrochanteric fracture. There is no obvious pathologic lesion, no pre-existing hip joint arthritis. Assessment and Plan Assessment and plan (1) Hip fracture: Problem comment: Doing well this morning and optimized for surgery. Due to severe aortic stenosis is at risk for complications related to fluid shifts and volume loss and volume resuscitation. Status: Acute Total time spent: Total time spent is greater than 50% in coordination of care (as documented) at patient's floor/unit and/or counseling patient: (2) Severe aortic valve stenosis: Problem comment: Mean gradient 72 mmHg 05/20/2022. Mean gradient was 41 mmHg 01/2020. Family declines any additional disease directed diagnostic or interventional efforts at this time. Status: Acute Total time spent: Total time spent is greater than 50% in coordination of care (as documented) at patient's floor/unit and/or counseling patient: (3) Alzheimer's type dementia: Problem comment: Receiving hospice services in association with the same Status: Acute Total time spent: Total time spent is greater than 50% in coordination of care (as documented) at patient's floor/unit and/or counseling patient: Plan Assessment: Three-part left hip intertrochanteric fracture Plan: The patient has been medically cleared for surgery. Therefore, we will plan to take him to the operating room today.
--- NOTE | 2022-05-21 14:53 | P.NB_ITS ---
Nerve Block Nerve Block Time Seen by Provider: 14:15 Date Seen: 05/21/22 Type of block requested by surgeon for post-operative analgesia: URMILA/LFCN Side: left Time out performed: Yes Verification of patient name: Yes Verification of date of : Yes Site marking: site marked Name of person performing procedure: [place] Continuous monitoring Was continuous monitoring of O2 sat, B/P, cafeteria monitor, recorded every 15 minutes?: Yes Procedure Checklist: sterile prep and needles Ultrasound guided. Images saved: Yes Medications given in 5ml increments after negative aspiration: Ropivicaine %: 0.5 mL: 30 Needle gauge: 20 Decadron (mg): 10 Precedex (mcg): 25 Patient tolerated procedure well: Yes Block Charges Block Charge (with Pro Fee): Other Periph Nerve Block Use of Ultrasound Machine for Block: Yes- US Guidance/pain block
--- NOTE | 2022-05-21 15:21 | P.ORPRC_ITS ---
Procedure Note Date of procedure: 05/21/22 Procedure: SURGEON: Nasim Ashraf MD ROOM SERVICE WAITER: Ludy Higuera PA-C PREOPERATIVE DIAGNOSIS: Left hip 3 part intertrochanteric fracture POSTOPERATIVE DIAGNOSIS: Left hip 3 part intertrochanteric fracture NAME OF OPERATION: Left hip fracture ORIF IMPLANTS: Synthes intramedullary hip screw 12 mm x 400 mm with a 105 mm lag screw ANESTHESIA: General ESTIMATED BLOOD LOSS: 100 mL COMPLICATIONS: None SPECIMENS: None DRAINS: None PREOPERATIVE ANTIBIOTICS: Ancef 1 gram INDICATIONS: The patient is a 82-year-old male who yesterday sustaining a 3 part intertrochanteric fracture of the left hip. They were admitted for workup and care. They have been medically cleared for surgery. The risks, benefits and expected outcomes were discussed in detail with the patient's . These included but were not limited to: Infection, bleeding, injury to blood vessel or nerve, venous thromboembolism. All questions were answered to their satisfaction. Use of an assistant athletic trainer was necessary for patient positioning and safety, soft tissue retraction and closure, dressing application, and transfer of the patient to and from the hospital bed to the fracture table. PROCEDURE: General anesthesia was administered. The patient was placed supine on the fracture table. The left lower extremity was prepped and draped in the usual sterile fashion. The limb was placed in longitudinal traction. Our provisional reduction was confirmed with the C-arm. The guide pin was placed percutaneously to the tip of the greater trochanter. It was advanced into the canal. Its placement was confirmed with the image intensifier in both AP and lateral views. We then made a stab incision around the guide pin. The soft tissue sleeve was advanced to the tip of the trochanter. The opening Reamer was used. The ball- tipped guide alejandra was placed. Its location was confirmed with an AP and lateral view at the knee. Length was measured. We reamed starting at 12.5 and ending at 13.5 mm with some cortical chatter. The intramedullary nail was placed. The guide pin was taken to the subchondral bone of the femoral head on both the AP and lateral views. It was placed in the center, center of the head. The drill and the tap were used. We placed the 105 mm lag screw. Our reduction remains anatomic. Traction was released. The lag screw was set to dynamic mode. That is it was not locked. The fracture was compressed. This construct was imaged in the AP and lateral views and was felt to be well placed with an anatomic reduction. The wounds were irrigated with normal saline. They were closed with Vicryl deep and Monocryl in the skin. A dry dressing was applied. Sponge and needle counts were correct x2. The patient tolerated the procedure well. There were no apparent complications. They were carefully transferred to the hospital bed and taken to the postanesthesia care unit in satisfactory condition. PLAN: The patient will be mobilized with physical therapy. They may weightbear as tolerates on the left lower extremity. Xarelto will be used for DVT prophylaxis. They will be discharged to a usp once medically appropriate.
--- NOTE | 2022-05-21 15:27 | W.ANESCHARGE ---
Anesthesia Charges Start Date/Time Anesthesia Start Date: 05/21/22 Anesthesia Start Time: 13:46 Stop Date/Time Anesthesia Stop Date: 05/21/22 Anesthesia Stop Time: 15:30 Summary Emergency: Yes Extremes of Age: Over 71-CPT [id number]
--- NOTE | 2022-05-21 15:53 | CRLHL7_ITS ---
For Patients: As a result of the Cures Act, medical imaging exams and procedure reports are released immediately into your electronic medical record. You may view this report before your referring provider. If you have questions, please contact your health care provider. Indication: POST-OP LEFT FEMUR, LEFT HIP FRACTURE FIXATION Technique: Two views left femur IMPRESSION: Open reduction internal fixation of the intertrochanteric fracture left proximal femur. Intact hardware. Total knee arthroplasty hardware intact. Dictated by René Penaloza MD @ 05/22/2022 9:09:31 AM (Electronically Signed)
[2022-05-21] MEDS: LACTATED RINGERS 1000 ML 1,000 ML 35 ML IV (16:03)
--- NOTE | 2022-05-21 16:34 | SUR.PHASEI ---
patient met discharge criteria per anesthesia
--- NOTE | 2022-05-21 20:05 | PC.NURSE ---
shift [id number] Pt this shift calm and cooperative with cares. Pt fatigued and sleeping often. Running low grade fever, notified, Mosley ordered and placed using sterile technique. Urine sample sent to lab. Premedicated with Morphine (see eMAR) prior to cares. Pt facial grimace and flushing with movement. Brief changed x1 prior to catheter placement and barrier cream applied to red area over coccyx. Skin intact. Held morning meds d/t NPO and pt needing pills crushed with applesauce. Pt returned from PACU 1625, asleep and stable vitals. Open eyes when tag writer or family touched pt and said his name. Pt alert after about an hour. Manipulating figet item, taking sips of honey thickened water, and no signs of pain noted. Bandage to L hip CDI, pedal pulses present and strong, CMS intact. Family at bedside.
[2022-05-21] MEDS: QUETIAPINE 25 MG TABLET 50 MG PO (22:02)
[2022-05-21] MEDS: SENNOSIDES 1 TAB TABLET 2 TAB PO (22:02)
[2022-05-21] MEDS: GABAPENTIN 100 MG CAPSULE PO (22:02)
[2022-05-21] MEDS: TRAZODONE HCL 50 MG TABLET PO (22:02)
[2022-05-22] MEDS: CEFAZOLIN 1 GM in 0.9 % SODIUM CHLORIDE Mini-bag 100 ML IVPB ×2 (00:02→07:55)
[2022-05-22] MEDS: MORPHINE 2 MG/ML inj IVP ×2 (00:07→13:24)
[2022-05-22 03:00] VITALS: PULSE 80; RESP 18; TEMP 37.1; O2SAT 95
[2022-05-22] MEDS: LACTATED RINGERS 1000 ML 1,000 ML 75 ML IV (03:00)
--- NOTE | 2022-05-22 06:40 | PC.NURSE ---
Shift note: Surgical dressing is C/D/I, pt is afebrile, Mosley cath is in place and draining.
[2022-05-22 06:59] LABS: Hematocrit 30.8 % (37.0-53.0); Hemoglobin* 9.8 gm/dL (13.5-17.5); Mean Corpuscular HGB Conc 32 gm/dL (32-36); Mean Corpuscular Hemoglobin 28 pg (26-34); Mean Corpuscular Volume 87 fL (80-100); Platelet Count* 152 K/uL (140-440); Red Blood Count 3.53 m/uL (4.30-5.90); White Blood Count* 9.79 K/uL (4.50-11.00)
[2022-05-22 07:00] VITALS: BP 128/68; PULSE 62; PULSE 99; RESP 18; TEMP 37.1; O2SAT 99
[2022-05-22 07:11] LABS: Slide Review Reflex No
[2022-05-22 07:21] LABS: Potassium* 4.1 mmol/L (3.6-5.1); Sodium* 135 mmol/L (135-149)
[2022-05-22 07:24] LABS: Blood Urea Nitrogen* 21 mg/dL (7-30); Creatinine* 0.9 mg/dL (0.5-1.5); Est. Creatinine Clearance* 52.06; Estimated Glomerular Filt Rate 86 ml/min
[2022-05-22] MEDS: GABAPENTIN 100 MG CAPSULE PO ×2 (08:47→13:24)
[2022-05-22] MEDS: RIVAROXABAN 10 MG TABLET PO (08:47)
[2022-05-22] MEDS: SENNOSIDES 1 TAB TABLET 2 TAB PO (08:47)
[2022-05-22] MEDS: CHOLESTYRAMINE POWDER 4 GM PO ×2 (08:47→12:13)
--- NOTE | 2022-05-22 09:05 | PM.ORPN ---
Subjective Subjective Time Seen by Provider: 07:15 Date Seen: 05/22/22 Principal diagnosis: Is post left hip IM rodding Interval history: 82-year-old male with severe dementia and severe aortic stenosis . He is nonverbal. He is comfortable at rest this morning. Ortho Exam Narrative Exam Narrative: Pedal pulses DP and PT are easily palpable in normal. Dressing is intact. Skin temperature and color is normal. He wiggles his toes. Bilateral calves are soft and nontender, for he does not show signs of pain with squeezing his calves. He is nonverbal. Const Vital Signs, click to edit/add: Vital Signs - 24 hr 05/21/22 11:00 05/21/22 15:27 05/21/22 15:30 Temperature 100.7 F H 98.2 F 98.2 F Pulse Rate 79 80 Pulse Rate [Left Radial] 83 Pulse Rate [Right Pulse Oximeter] Respiratory Rate 22 19 16 Blood Pressure 123/54 L 124/91 H Blood Pressure [Left Arm] Blood Pressure [Right Arm] 104/66 Pulse Oximetry 97 98 100 Oxygen Delivery Method Room Air OxyMask OxyMask Oxygen Flow Rate 6 6 05/21/22 15:35 05/21/22 15:40 05/21/22 15:45 Temperature 98.2 F 98.2 F 98.2 F Pulse Rate 73 70 76 Pulse Rate [Left Radial] Pulse Rate [Right Pulse Oximeter] Respiratory Rate 15 15 14 Blood Pressure 115/89 118/79 118/59 L Blood Pressure [Left Arm] Blood Pressure [Right Arm] Pulse Oximetry 100 100 100 Oxygen Delivery Method OxyMask OxyMask OxyMask Oxygen Flow Rate 6 6 6 05/21/22 15:50 05/21/22 15:55 05/21/22 16:00 Temperature 98.2 F 98.2 F 98.2 F Pulse Rate 75 70 70 Pulse Rate [Left Radial] Pulse Rate [Right Pulse Oximeter] Respiratory Rate 14 18 19 Blood Pressure 105/62 101/55 L 115/65 Blood Pressure [Left Arm] Blood Pressure [Right Arm] Pulse Oximetry 100 100 100 Oxygen Delivery Method OxyMask OxyMask OxyMask Oxygen Flow Rate 6 6 6 05/21/22 16:05 05/21/22 16:10 05/21/22 16:15 Temperature 98.2 F 99.3 F 99.3 F Pulse Rate 75 73 77 Pulse Rate [Left Radial] Pulse Rate [Right Pulse Oximeter] Respiratory Rate 19 17 15 Blood Pressure 121/94 H 129/67 103/62 Blood Pressure [Left Arm] Blood Pressure [Right Arm] Pulse Oximetry 100 100 100 Oxygen Delivery Method OxyMask Room Air Oxygen Flow Rate 6 0 05/21/22 16:20 05/21/22 16:41 05/21/22 15:00 Temperature 99.3 F 99.1 F Pulse Rate 74 66 Pulse Rate [Left Radial] 65 Pulse Rate [Right Pulse Oximeter] Respiratory Rate 15 18 18 Blood Pressure 111/72 Blood Pressure [Left Arm] 117/59 L Blood Pressure [Right Arm] Pulse Oximetry 100 Oxygen Delivery Method Room Air Room Air Oxygen Flow Rate 0 05/21/22 16:30 05/21/22 16:45 05/21/22 17:00 Temperature 99.1 F 100 F H Pulse Rate Pulse Rate [Left Radial] Pulse Rate [Right Pulse Oximeter] 65 79 75 Respiratory Rate 18 18 18 Blood Pressure Blood Pressure [Left Arm] 114/73 94/56 L 91/59 L Blood Pressure [Right Arm] Pulse Oximetry 91 93 91 Oxygen Delivery Method Room Air Room Air Room Air Oxygen Flow Rate 05/21/22 17:30 05/21/22 18:00 05/21/22 18:30 Temperature 99.1 F Pulse Rate Pulse Rate [Left Radial] Pulse Rate [Right Pulse Oximeter] 74 83 Respiratory Rate 21 21 Blood Pressure Blood Pressure [Left Arm] 99/57 L 107/78 117/99 H Blood Pressure [Right Arm] Pulse Oximetry 94 94 95 Oxygen Delivery Method Room Air Room Air Room Air Oxygen Flow Rate 05/21/22 19:00 05/21/22 20:00 05/21/22 21:00 Temperature 99 F 99.2 F 98.9 F Pulse Rate Pulse Rate [Left Radial] Pulse Rate [Right Pulse Oximeter] 90 74 89 Respiratory Rate 20 18 18 Blood Pressure Blood Pressure [Left Arm] 116/76 121/87 113/61 Blood Pressure [Right Arm] Pulse Oximetry 96 95 95 Oxygen Delivery Method Room Air Room Air Room Air Oxygen Flow Rate 0 0 05/21/22 19:00 05/21/22 23:00 05/21/22 23:00 Temperature 98.9 F 98.6 F Pulse Rate Pulse Rate [Left Radial] 72 Pulse Rate [Right Pulse Oximeter] 89 Respiratory Rate 18 18 18 Blood Pressure Blood Pressure [Left Arm] 113/61 154/66 H Blood Pressure [Right Arm] Pulse Oximetry 95 96 Oxygen Delivery Method Room Air Room Air Oxygen Flow Rate 0 05/22/22 03:00 Temperature 98.8 F Pulse Rate Pulse Rate [Left Radial] 80 Pulse Rate [Right Pulse Oximeter] Respiratory Rate 18 Blood Pressure Blood Pressure [Left Arm] Blood Pressure [Right Arm] Pulse Oximetry 95 Oxygen Delivery Method Room Air Oxygen Flow Rate Assessment and Plan Assessment and plan (1) Hip fracture: Problem details: Date of surgery 05/21/2022 Status: Acute Assessment and Plan: Plan for discharge will be to retirement facility when meet discharge criteria, possibly today. DVT prophylaxis includes Xarelto 10 mg daily for 30 days, Kennedy stockings x1 month may remove for 1 hr per day. Weightbear as tolerated left lower extremity. Remove dressing 1 week. Observe wound and phone Orthopedics with any questions or concerns Use Ice on operative hip unrestricted. Return to clinic in [address] Ashraf Minimize narcotic use. Wean off and discontinue soon as possible. PT at retirement facility (2) Severe aortic valve stenosis: Problem details: Mean gradient 72 mmHg 05/20/2022. Mean gradient was 41 mmHg 01/2020. Family declines any additional disease directed diagnostic or interventional efforts at this time. Status: Acute (3) Alzheimer's type dementia: Problem details: Receiving hospice services in association with the same Status: Acute
[2022-05-22 11:00] VITALS: BP 104/50; PULSE 65; RESP 18; TEMP 36.8; O2SAT 99
[2022-05-22] MEDS: ACETAMINOPHEN 325 MG TABLET 650 MG PO (12:13)
[2022-05-22 15:00] VITALS: BP 116/73; PULSE 66; RESP 18; TEMP 37.2; O2SAT 99
--- NOTE | 2022-05-22 15:10 | PC.SOCIAL ---
[facility] Pt. will re-open to hospice with [facility]. They will admit pt. at 6pm tonight and equipment will be delivered at 5pm. EMS transport will be set up for pt to return. Updated pt's spouse.
--- NOTE | 2022-05-23 15:42 | P.DS_ITS ---
DS: Providers Provider Date Seen: 05/23/22 Date of admission: 05/20/22 15:16 Primary care physician: Not a Local Provider Admitting Clinician: John Lundberg MD Consults: 05/20/22 15:21 Consult to Nutrition [CONS] Routine Comment: Reason for consult:: Miscellaneous Comment: wt loss, advanced alzheimers Consult to Occupational Therapy [CONS] Routine Comment: Reason(s) for OT Consult:: Evaluate and Treat Any Restrictions?:: See Comment Comment: L hip fx, to OR 05/21/2022; advanced alzheimers dementia Consult to Physical Therapy [CONS] Routine Comment: Reason(s) for PT Consult:: Evaluate and Treat Any Restrictions?:: See Comment Comment: L hip fx, to OR 05/21/2022; advanced alzheimers dementia Consult to Technology Sales Specialist [CONS] Routine Comment: Reason for Consult:: Discharge Planning Needs Consult to Speech Therapy [CONS] Routine Comment: Reason(s) for Speech Consult:: Swallowing Difficulty Comment: on bite size foods and apple sauce consistency fluids 05/20/22 18:29 Consult to Occupational Therapy [CONS] Routine Comment: Reason(s) for OT Consult:: Difficulty Managing ADLs Any Restrictions?:: Partial Wt Bearing Consult to Physical Therapy [CONS] Routine Comment: Reason(s) for PT Consult:: Evaluate Ambulation Any Restrictions?:: Partial Wt Bearing 05/21/22 18:11 Consult to Occupational Therapy [CONS] Routine Comment: Reason(s) for OT Consult:: Evaluate and Treat Any Restrictions?:: See Comment Comment: evaluate and treat Consult to Physical Therapy [CONS] Routine Comment: Reason(s) for PT Consult:: Evaluate and Treat Any Restrictions?:: See Comment Comment: WBAT Consult to Technology Sales Specialist [CONS] Routine Comment: Reason for Consult:: Discharge Planning Needs Attending Physician on discharge: Emily Rubi MD [facility] Date of Discharge: 05/23/22 DS: Diagnosis Discharge Diagnosis (1) Hip fracture: Status: Acute Problem details: Date of surgery 05/21/2022 (2) Severe aortic valve stenosis: Status: Acute Problem details: Mean gradient 72 mmHg 05/20/2022. Mean gradient was 41 mmHg 01/2020. Family declines any additional disease directed diagnostic or interventional efforts at this time. (3) Alzheimer's type dementia: Status: Acute Problem details: Receiving hospice services in association with the same DS: Summary Hospital Course Hospital Course: HOSPITALIST DISCHARGE SUMMARY ATTENDING PHYSICIAN: Emily Rubi MD FINAL DIAGNOSIS: Left hip fracture ORIF -Synthes intramedullary hip screw 12 mm x 400 mm with a 105 mm lag screw Aortic stenosis Alzheimer's dementia [facility] FOLLOWUP ISSUES: 1. Orthopedics follow-up for routine postoperative care REFERRALS WHILE ADMITTED: PT, OT, orthopedics REFERRALS AFTER DISCHARGE: PT and OT BRIEF HOSPITAL COURSE: Cuco suffers from dementia. He fell, he broke his left hip. Family was consulted about possible treatment patterns and or conservative care. They pursue surgery. Cuco did wonderfully. He is able to be discharged the day after surgery. His aortic stenosis is progressing but was not acutely unstable at the time of presentation of fall. An echo did show that his gradient was increasing but, not acutely. His Alzheimer's dementia is severe. He will be able to return at least to the [facility], not the [facility] VITAL SIGN, MEDICATION, LAB/MICRO, IMAGING SUMMARY (full details available in account tabs or by records request) DISCHARGE MEDICATIONS: See Reconciled list REVIEW OF SYSTEMS No new chest pain or dyspnea Pain controlled No voiding difficulties Tolerating diet challenge PHYSICAL EXAM: CONSTITUTIONAL: confused; at baseline. VITAL SIGNS: see record. HEENT: Normocephalic, atraumatic. PERRL, EOMI, conjunctivae pink, no scleral icterus. Ears and nose externally normal. Pharynx normal. NECK: No JVD. No carotid bruit, no thyromegaly, no adenopathy. CHEST: Clear to auscultation bilaterally. HEART: S1 and S2 normal. Edema ABDOMEN: Soft, nontender. Normal bowel sounds. MUSCULOSKELETAL: No gross joint deformity or swelling. left hip is bruised and echymcossi. NEURO: Cranial nerves intact. Grossly intact. No asymmetric findings. SKIN: No rashes, petechiae, concerning changes PSYCHIATRIC: Mood euthymic. DISPOSITION: Time spent on discharge 37 minutes. Status at Discharge Functional status at discharge: wheelchair bound Overall status at discharge: patient is not back to baseline Time Spent with Patient Time attestation: Total time spent providing and/or coordinating discharge services: Time spent: Greater than 30 minutes Discharge Plan Discharge Disposition: [facility] Date of Admission: 05/20/22 15:16 Attending Provider on Discharge: Emily Rubi Consulting Providers: Nasim Ashraf Primary Care Provider: Provider,Not a Local Condition: Improved Anticipated Discharge Date/Time: 05/22/22 09:29 Discharge Medications: New acetaminophen 325 mg Tablet 650 mg PO Q6H PRNQty: 100 0RF Xarelto 10 mg Tablet 10 mg PO DAILY 29 Days Qty: 29 0RF Rx Instructions: DVT prophylaxis sennosides [Senna Lax] 8.6 mg Tablet 17.2 mg PO BID PRNQty: 100 0RF Rx Instructions: for narcotic related constipation Continued bisacodyl 10 mg suppository 10 mg RI DAILY PRN Label Comments: INSERT 1 SUPPOSITORY RECTALLY ONCE DAILY NEEDED FOR CONSTIPATION hyoscyamine sulfate 0.125 mg tablet, sublingual 0.125 mg PO Q4H PRN Label Comments: DISSOLVE 1 TABLET UNDER THE TONGUE EVERY 4 HOURS NEEDED FOR SECRETIONS Prevalite 4 gram powder 4 ea PO TID loperamide [Imodium A-D] 2 mg capsule 2 mg PO Q6H PRN quetiapine 25 mg tablet 25 mg PO DAILY PRN trazodone 50 mg tablet 50 mg PO HS morphine concentrate 100 mg/5 mL (20 mg/mL) solution 5 mg PO Q2H PRN sennosides-docusate sodium [Stimulant Laxative Plus] 8.6-50 mg tablet 1 tab-cap PO DAILY PRN Label Comments: TAKE 1 TABLET BY MOUTH DAILY NEEDED FOR CONSTIPATION melatonin 3 mg tablet 6 mg PO QHS quetiapine [Seroquel] 50 mg tablet 50 mg PO QHS acetaminophen 650 mg suppository 650 mg RI Q6H PRN lorazepam [Ativan] 0.5 mg tablet 0.5 mg PO Q4H PRN Discharge Orders: Discharge Order (Routine); Ordered 05/22/22 Ordered By: Emily Rubi Additional Instructions: Admit to Hospice upon arrival. Activity Level: Weight Bearing as Tolerated Activity Detail: Keep dressing on for 1 week. Dressing is waterproof. May shower. Surgical glue covers the wound. Attend outpatient physical therapy if scheduled. Ice and elevate operative extremity without restriction. Wear compression stockings for 1 month post surgery. May remove for 1 hour per day. Do not drink alcohol while taking narcotic pain medication. Notify Orthopedics with any questions or concerns. ([phone]) Discharge Diet: Regular Follow Up Appointments: Maribel Lr MD [Staff Physician] - Nasim Ashraf MD [Staff Physician] - (6 weeks) Provider,Not a Local [Primary Care Provider] - Discharge Comments: Return to clinic in [address] Ashraf. [facility]
== END 2022-05-22 17:55 | DRG 481 ==
LOC: ED 13:26 → MEDSURG 15:06
PROVIDERS: Orthopaedic Surgery; Admitting Provider Internal Medicine; Emergency Provider Emergency Medicine Emergency Medical Services; Visit Provider Internal Medicine
PROC: 0QS706Z Reposition Left Upper Femur with Intramedullary Internal Fixation Device, Open Approach (ICD-10-PCS; CPT 27245; principal; 2022-05-21 14:00)
DX: S72.142A Displaced intertrochanteric fracture of left femur, initial encounter for closed fracture (principal); F05 Delirium due to known physiological condition; G30.9 Alzheimer's disease, unspecified; F02.C0 Dementia in other diseases classified elsewhere, severe, without behavioral disturbance, psychotic disturbance, mood disturbance, and anxiety; Y92.129 Unspecified place in nursing home as the place of occurrence of the external cause; W19.XXXA Unspecified fall, initial encounter; I35.0 Nonrheumatic aortic (valve) stenosis; R01.1 Cardiac murmur, unspecified; R13.10 Dysphagia, unspecified; R26.89 Other abnormalities of gait and mobility; R45.87 Impulsiveness; I10 Essential (primary) hypertension; G47.33 Obstructive sleep apnea (adult) (pediatric); E78.5 Hyperlipidemia, unspecified; Z85.46 Personal history of malignant neoplasm of prostate
CPT/HCPCS: 01230; 36415; 64450; 71045; 73502; 73552; 76000; 76942; 80048; 81003; 82565; 82803; 83605; 83880; 84132; 84295; 84443; 84520; 85025; 85027; 86140; 86850; 86900; 86901; 87086; 87635; 93005; 93306; 97162; 97165; 99100; 99140; 99285; A9270; C1713; J0330; J0690; J1100; J1170; J2270; J2370; J2704; J2795; J3490; J7120

== ENCOUNTER 2022-05-22 17:49 | Outpatient (CLI) | payer MEDICARE, OTHER, SELFPAY | END 2022-05-22 17:50 | disposition home or self-care (01) | LOC: AMB 06-04 10:14 | PROVIDERS: Visit Provider Family Medicine | DX: F03.90 Unspecified dementia, unspecified severity, without behavioral disturbance, psychotic disturbance, mood disturbance, and anxiety (principal) | CPT/HCPCS: A0425; A0428 ==